=== PATIENT | male | born 1960 | race African-American/Black ===

== ENCOUNTER 2018-03-15 13:28 | Inpatient (IN) | payer OTHER ==
[2018-03-15 15:43] VITALS: BMI 25.4
--- NOTE | 2018-03-15 17:38 | HP ---
COWS - Scale Resting Pulse: 2= NC 101-120 Sweatin=Flushed/Facial Moisture Restless Observation: 1= Difficult to Sit Still Pupil Size: 0= Normal to Room Light Bone or Joint Aches: 2= Severe Diffuse Aches (Increased above normal discomfort) Runny Nose/ Eye Tearin= Nasal Congestion GI Upset > 30mins: 2= Nausea/Diarrhea (No diarrhea) Tremor Observation: 2= Slight Tremor Visible Yawning Observation: 0= None Anxiety or Irritability: 1=Feels Anxious/Irritable Goose Flesh Skin: 0=Smooth Skin COWS Score: 13 CIWA Score Nausea/Vomitin-Mild Nausea/No Vomiting Muscle Tremors: 4-Moderate,w/Arms Extend Anxiety: 1-Mildly Anxious Agitation: 1-Slight > Activity Paroxysmal Sweats: 3 (Facial Moisture) Orientation: 0-Oriented Tacttile Disturbances: 0-None Auditory Disturbances: 0-None Visual Disturbances: 0-None Headache: 3-Moderate CIWA-Ar Total Score: 13 - Admission Criteria OAS Guidelines: Admission for Medically Managed Detox: Requires at least one of the followin. CIWA greater than 12 2. Seizures within the past 24 hours 3. Delirium tremens within the past 24 hours 4. Hallucinations within the past 24 hours 5. Acute intervention needed for co occurring medical disorder 6. Acute intervention needed for co occurring psychiatric disorder 7. Severe withdrawal that cannot be handled at a lower level of care (continued vomiting, continued diarrhea, abnormal vital signs) requiring intravenous medication and/or fluids 8. Patient presents the following: CIWA greater than 12 Admission Criteria Met: Admission criteria met Admission ROS [facility] Chief Complaint: Here for opiate withdrawal. Allergies/Adverse Reactions: Allergies Allergy/AdvReac Type Severity Reaction Status Date / Time bryan Allergy Verified 03/15/18 16:27 cheese Allergy Verified 03/15/18 16:27 History of Present Illness: Here for opioid detox. Nicotine use began at age 15. Alcohol use began at age 14. Heroin use began at age 17. Crack/cocaine use began at age 22. Denies seizures or blackouts. Last overdose about 5 years ago. Longest length of sobriety 1 1/2 years. Discussed the benefits of community support meetings to support sobriety. Post epigastric hernia repair on 03/12/18 @ [facility] medicated patient w/ pain medication and methadone. Discharged on 03/14/18. . States was given methadone and pain medication while in-patient. Was given prescription for oxycodone and informed that medication would not be continued. States hx anemia and is constantly cold. Hx mental health problems being treated by [facility]. Last saw mental health provider in 2017. Denies thoughts of harming self or others. Search Terms: Keenan Zelaya, 1960 Search Date: 03/15/2018 05:39:06 PM The Drug Utilization Report below displays all of the controlled substance prescriptions, if any, that your patient has filled in the last twelve months. The information displayed on this report is compiled from pharmacy submissions to the Department, and accurately reflects the information as submitted by the pharmacies. This report was requested by: Sis Hui | Reference #: [id number] Others' Prescriptions Patient Name: Keenan Zelaya Date: 1960 Address: [address] [place] [address] Sex: Male Rx Written Rx Dispensed Drug Quantity Days Supply Prescriber Name 09/04/2017 09/07/2017 suboxone 8 mg-2 mg sl film 28 14 Kannan Diaz 08/04/2017 08/10/2017 suboxone 8 mg-2 mg sl film 20 10 Kannan Diaz Exam Limitations: No Limitations - Ebola screening Have you traveled outside of the country in the last 21 days: No (N) Have you had contact with anyone from an Ebola affected area: No Have you been sick,other than usual withdrawal symptoms: No Do you have a fever: No - Review of Systems Constitutional: Chills, Diaphoresis EENT: reports: Blurred Vision, Nose Congestion, Dental Problems (Missing some teeth. No problems chewing or swallowing.) Respiratory: reports: Other (COPD. Denies shortness of breath at this moment but had recent episodes.) Cardiac: reports: Other (Hx. Murmur) GI: reports: Constipated (Last BM 4-5 days ago.), Nausea, Other (S/P epigatric hernia repair on . C/o abd pain at incision site. Pain is a "8" and achy. Increases movement. coughing) : reports: Hematuria (States blood in urine x 2 days w/ a burning sensation.) Musculoskeletal: reports: Back Pain (Low back pain x 1.5 years. Usually achy, occassionaly sharp.), Joint Pain (Tenderness in all joints x 3 years. States pain has increased because in withdrawal.) Integumentary: reports: No Symptoms Reported Neuro: reports: Headache (Moderate w/o light sensitivity) Endocrine: reports: Increased Thirst (x 2 days), Increased Urine (x 7 months) Hematology: reports: No Symptoms Reported Psychiatric: reports: Judgement Intact, Orientated x3, Agitated, Anxious, Depressed (A little depression. Denies thoughts of harming self or others.), other Patient History - Patient Medical History Hx Asthma: No Hx Chronic Obstructive Pulmonary Disease (COPD): Yes Hx Cardiac Disorders: No Hx Hypertension: No Hx Seizures: No Hx Diabetes: No Hx Gastrointestinal Disorders: No Hx Genitourinary Disorders: No Hx Sexually Transmitted Disorders: No Hx Renal Disease (ESRD): No Hx Depression: No Hx Suicide Attempt: No Hx Schizophrenia: Yes - Patient Surgical History Past Surgical History: Yes Hx Neurologic Surgery: No Hx Cataract Extraction: No Hx Cardiac Surgery: No Hx Lung Surgery: No Hx Breast Surgery: No Hx Breast Biopsy: No Hx Abdominal Surgery: Yes (HERNIA REPAIR 03/12/18) Hx Appendectomy: No Hx Cholecystectomy: No Hx Genitourinary Surgery: No Hx Section: No Hx Orthopedic Surgery: No Anesthesia Reaction: No - PPD History Previous Implant?: Yes Documented Results: Negative w/o proof - Smoking Cessation Smoking history: Current every day smoker Have you smoked in the past 12 months: Yes Aproximately how many cigarettes per day: 10 Hx Chewing Tobacco Use: No Initiated information on smoking cessation: Yes 'Breaking Loose' booklet given: 03/15/18 - Substance & Tx. History Hx Alcohol Use: Yes Hx Substance Use: Yes Substance Use Type: Alcohol, Cocaine (Crack), Heroin Hx Substance Use Treatment: Yes (detoxes, rehabs) - Substances Abused Alcohol Route: Oral Frequency: Daily Amount used: liquor- 2 pints, beer- 1 six pack Age of first use: 14 Date of Last Use: 03/14/18 Heroin Route: Inhalation Frequency: Daily Amount used: 15 bags Age of first use: 17 Date of Last Use: 03/14/18 Crack Route: Smoking Frequency: Daily Amount used: $100 worth Age of first use: 22 Date of Last Use: 03/12/18 Admission Physical Exam BHS - Vital Signs Vital Signs: Vital Signs - 24 hr 03/15/18 15:40 Temperature 99.5 F Pulse Rate 105 H Respiratory 18 Rate Blood Pressure 137/76 - Physical General Appearance: Yes: Mild Distress, Tremorous, Irritable, Sweating, Anxious HEENTM: Yes: EOMI, Hearing grossly Normal, Normocephalic, Normal Voice, SISSY Respiratory: Yes: Lungs Clear, Normal Breath Sounds, No Respiratory Distress Neck: Yes: No masses,lesions,Nodules, Supple Breast: Yes: Breast Exam Deferred Cardiology: Yes: Regular Rhythm, S1, S2, Murmur, Tachycardia Abdominal: Yes: Soft, Guarding (Abd tenderness w/ guarding r/t recent surgical) , Other (Mid abd incison-line w/ dry dressing. Abd soft, (+) tenderness at incision line, BS(+); No rebound tenderness.) Genitourinary: Yes: Within Normal Limits Back: Yes: Normal Inspection Musculoskeletal: Yes: full range of Motion, Gait Steady, Joint Stiffness Extremities: Yes: Normal Capillary Refill, Normal Inspection, Normal Range of Motion Neurological: Yes: physician advisor II-XII NML intact, Fully Oriented, Motor Strength 5/5, Normal Mood/Affect Integumentary: Yes: Normal Color, Dry, Warm Lymphatic: Yes: Within Normal Limits - Diagnostic (1) Alcohol dependence with uncomplicated withdrawal Current Visit: Yes Status: Acute (2) Opioid dependence with withdrawal Current Visit: Yes Status: Acute (3) Nicotine dependence, uncomplicated Current Visit: Yes Status: Acute Qualifiers: Nicotine product type: cigarettes Qualified Code(s): F17.210 - Nicotine dependence, cigarettes, uncomplicated (4) History of abdominal surgery Current Visit: Yes Status: Acute Comment: Patient had an epigastric hernia repair on 03/12/18. (5) Cocaine dependence, uncomplicated Current Visit: Yes Status: Chronic Cleared for Admission [facility] - Detox or Rehab [facility] Level of Care: Medically Managed Detox Regimen/Protocol: Methadone/Librium [facility] Breath Alcohol Content Breath Alcohol Content: 0 Urine Drug Screen - Results Drug Screen Negative: No Urine Drug Screen Results: OPI-Opiates, MTD-Methadone, OXY-Oxycodone
[2018-03-15] MEDS ORDERED: MENTHOL/PHENOL 1 EACH UD MM PRN (18:55)
[2018-03-15] MEDS ORDERED: LOPERAMIDE HCL 2 MG CAPSULE PO PRN (18:55)
[2018-03-15] MEDS ORDERED: MAG HYDROX/AL HYDROX/SIMETH 30 ML UNIT-DOSE CUP PO PRN (18:55)
[2018-03-15] MEDS ORDERED: chlordiazePOXIDE HCL 25 MG CAPSULE PO PRN (18:55)
[2018-03-15] MEDS ORDERED: METHADONE HCL 10 MG TABLET (FOR DETOX USE ONLY) PO ONE ×2 (18:55→23:00)
[2018-03-15] MEDS ORDERED: chlordiazePOXIDE HCL 25 MG CAPSULE PO ONE (18:55)
[2018-03-15] MEDS ORDERED: IBUPROFEN 400 MG TABLET (FP) PO PRN (18:55)
[2018-03-15] MEDS ORDERED: MAGNESIUM HYDROX 2400MG/30ML ORAL SUSPENSION 30 ML CUP PO PRN (18:55)
[2018-03-15] MEDS ORDERED: MAGNESIUM CITRATE 300 ML BOTTLE PO PRN (18:55)
[2018-03-15] MEDS ORDERED: ACETAMINOPHEN 325 MG TABLET (FP) PO PRN (18:55)
[2018-03-15] MEDS ORDERED: MELATONIN 5 MG TABLETS PO PRN (22:00)
[2018-03-15] MEDS: DOCUSATE SODIUM 100 MG CAPSULE (FP) PO SCH (22:42)
[2018-03-15] MEDS: PANTOPRAZOLE 20 MG TABLET (FP) PO SCH (22:42)
[2018-03-15] MEDS: THIAMINE HCL 100 MG TABLET (FP) PO SCH (22:42)
[2018-03-15] MEDS: chlordiazePOXIDE HCL 25 MG CAPSULE PO SCH (22:42)
[2018-03-15 23:11] LABS: URINE APPEARANCE TURBID; URINE BILIRUBIN NEGATIVE (<2.0 mg/dL); URINE COLOR YELLOW; URINE GLUCOSE (UA) NEGATIVE (NEGATIVE); URINE KETONE TRACE (NEGATIVE); URINE LEUK ESTERASE NEGATIVE (NEGATIVE); URINE NITRITE NEGATIVE (NEGATIVE); URINE PROTEIN NEGATIVE (NEGATIVE); URINE UROBILINOGEN NEGATIVE mg/dL (0.2-1.0)
[2018-03-16] MEDS: chlordiazePOXIDE HCL 25 MG CAPSULE PO SCH ×4 (06:46→22:02)
[2018-03-16] MEDS: DOCUSATE SODIUM 100 MG CAPSULE (FP) PO SCH ×3 (06:46→22:02)
[2018-03-16] MEDS ORDERED: METHADONE HCL 10 MG TABLET (FOR DETOX USE ONLY) PO SCH (10:00)
[2018-03-16] MEDS: PRENATAL VITAMINS W/ FOLIC ACID TABLET (FP) PO SCH (10:17)
[2018-03-16] MEDS: PANTOPRAZOLE 20 MG TABLET (FP) PO SCH ×2 (10:17→22:02)
[2018-03-16] MEDS: NICOTINE 21 MG/24 HOURS TOPICAL PATCH TD SCH (10:18)
[2018-03-16 10:58] LABS: ALBUMIN 2.8 g/dl (3.4-5.0); ALK PHOS 62 U/L (45-117); ANION GAP 7 MMOL/L (8-16); BILIRUBIN,TOTAL 0.5 mg/dL (0.2-1); BLOOD UREA NITROGEN 9 mg/dL (7-18); CALCIUM 8.4 mg/dL (8.5-10.1); CHLORIDE 107 mmol/L (98-107); CO2 28 mmol/L (21-32); CREATININE 0.9 mg/dL (0.55-1.3); GLUCOSE,RANDOM 79 mg/dL (74-106); POTASSIUM 4.3 mmol/L (3.5-5.1); SGOT/AST 18 U/L (15-37); SGPT/ALT 18 U/L (13-61); SODIUM 141 mmol/L (136-145)
[2018-03-16 11:07] LABS: HEMATOCRIT 40.4 % (35.4-49); HEMOGLOBIN 12.8 GM/dL (11.7-16.9); MCH 29.4 pg (25.7-33.7); MCHC 31.7 g/dl (32.0-35.9); MEAN CELL VOLUME 92.8 fl (80-96); MEAN PLT VOLUME 9.2 fl (7.5-11.1); PLATELET COUNT 176 K/MM3 (134-434); RBC 4.35 M/mm3 (4.00-5.60); RDW 13.5 % (11.9-15.9); WHITE BLOOD COUNT 7.9 K/mm3 (4.0-10.0)
--- NOTE | 2018-03-16 14:04 | PN ---
S CIWA - CIWA Score Nausea/Vomitin Muscle Tremors: 4-Moderate,w/Arms Extend Anxiety: 4-Mod. Anxious/Guarded Agitation: 2 Paroxysmal Sweats: 3 Orientation: 0-Oriented Tacttile Disturbances: 1-Very Mild Itch/Numbness Auditory Disturbances: 0-None Visual Disturbances: 0-None Headache: 1-Very Mild CIWA-Ar Total Score: 17 BHS COWS - Scale Resting Pulse: 1= [place] 81-100 Sweatin= Chills/Flushing Restless Observation: 3= Extraneous Movement Pupil Size: 0= Normal to Room Light Bone or Joint Aches: 2= Severe Diffuse Aches Runny Nose/ Eye Tearin= Runny Nose/Eyes GI Upset > 30mins: 3= Vomiting/Diarrhea Tremor Observation of Outstretched Hands: 2= Slight Tremor Visible Yawning Observation: 0= None Anxiety or Irritability: 2=Irritable/Anxious Goose Flesh Skin: 0=Smooth Skin COWS Score: 16 BHS Progress Note (SOAP) Subjective: Stomach ache, interrupted sleep, anxious Objective: 03/16/18 14:03 Last Vital Signs Temp Pulse Resp BP Pulse Ox 98.9 F 92 H 18 113/80 03/16/18 09:15 03/16/18 09:15 03/16/18 09:15 03/16/18 09:15 Laboratory Tests 03/15/18 03/16/18 03/16/18 18:08 07:50 07:50 WBC 7.9 RBC 4.35 Hgb 12.8 Hct 40.4 MCV 92.8 MCH 29.4 MCHC 31.7 L RDW 13.5 Plt Count 176 MPV 9.2 Sodium Potassium Chloride Carbon Dioxide Anion Gap BUN Creatinine Creat Clearance w eGFR Random Glucose Calcium Total Bilirubin AST ALT Alkaline Phosphatase Total Protein Albumin Urine Color Yellow Urine Appearance Turbid Urine pH 5.0 Ur Specific [place] 1.027 Urine Protein Negative Urine Glucose (UA) Negative Urine Ketones Trace H Urine Blood Negative Urine Nitrite Negative Urine Bilirubin Negative Urine Urobilinogen Negative Ur Leukocyte Esterase Negative RPR Titer HIV 1&2 Antibody Screen Negative HIV P24 Antigen Negative 03/16/18 03/16/18 07:50 07:50 WBC RBC Hgb Hct MCV MCH MCHC RDW Plt Count MPV Sodium 141 Potassium 4.3 Chloride 107 Carbon Dioxide 28 Anion Gap 7 L BUN 9 Creatinine 0.9 Creat Clearance w eGFR > 60 Random Glucose 79 Calcium 8.4 L Total Bilirubin 0.5 AST 18 ALT 18 Alkaline Phosphatase 62 Total Protein 6.0 L Albumin 2.8 L Urine Color Urine Appearance Urine pH Ur Specific [place] Urine Protein Urine Glucose (UA) Urine Ketones Urine Blood Urine Nitrite Urine Bilirubin Urine Urobilinogen Ur Leukocyte Esterase RPR Titer Nonreactive HIV 1&2 Antibody Screen HIV P24 Antigen Labs reviewed Assessment: 03/16/18 14:03 Withdrawal symptoms Plan: Continue detox Encouraged PO water intake
[2018-03-16] MEDS: NICOTINE POLACRILEX 2 MG GUM BUC PRN ×2 (15:17→22:19)
--- NOTE | 2018-03-16 16:58 | EKG ---
Test Reason : Blood Pressure : / mmHG Vent. Rate : 100 BPM Atrial Rate : 100 BPM P-R Int : 126 ms QRS Dur : 070 ms QT Int : 322 ms P-R-T Axes : 079 -39 002 degrees QTc Int : 415 ms NORMAL SINUS RHYTHM LEFT AXIS DEVIATION NONSPECIFIC ST AND T WAVE ABNORMALITY ABNORMAL ECG NO PREVIOUS ECGS AVAILABLE Confirmed by MD Mahesh, Severiano ([id number]) on 03/16/2018 4:58:32 PM Referred By: Confirmed By:Severiano Aragon MD
[2018-03-16] MEDS: THIAMINE HCL 100 MG TABLET (FP) PO SCH (22:02)
[2018-03-17] MEDS: chlordiazePOXIDE HCL 25 MG CAPSULE PO SCH ×3 (05:59→17:11)
[2018-03-17] MEDS: DOCUSATE SODIUM 100 MG CAPSULE (FP) PO SCH ×3 (05:59→22:10)
[2018-03-17] MEDS: NICOTINE POLACRILEX 2 MG GUM BUC PRN (06:37)
[2018-03-17] MEDS: METHADONE HCL 5 MG TABLET (FOR DETOX USE ONLY) PO SCH (10:48)
[2018-03-17] MEDS: PRENATAL VITAMINS W/ FOLIC ACID TABLET (FP) PO SCH (10:49)
[2018-03-17] MEDS: PANTOPRAZOLE 20 MG TABLET (FP) PO SCH ×2 (10:49→22:10)
[2018-03-17] MEDS: NICOTINE 21 MG/24 HOURS TOPICAL PATCH TD SCH (10:49)
--- NOTE | 2018-03-17 13:31 | PN ---
S CIWA - CIWA Score Nausea/Vomitin-No Nausea/No Vomiting Muscle Tremors: 3 Anxiety: 4-Mod. Anxious/Guarded Agitation: 3 Paroxysmal Sweats: 3 Orientation: 0-Oriented Tacttile Disturbances: 1-Very Mild Itch/Numbness Auditory Disturbances: 0-None Visual Disturbances: 0-None Headache: 2-Mild CIWA-Ar Total Score: 16 BHS COWS - Scale Resting Pulse: 1= [place] 81-100 Sweatin= Chills/Flushing Restless Observation: 1= Difficult to Sit Still Pupil Size: 0= Normal to Room Light Bone or Joint Aches: 2= Severe Diffuse Aches Runny Nose/ Eye Tearin= None GI Upset > 30mins: 1= Stomach Cramp Tremor Observation of Outstretched Hands: 2= Slight Tremor Visible Yawning Observation: 1= 1-2x During Session Anxiety or Irritability: 2=Irritable/Anxious Goose Flesh Skin: 0=Smooth Skin COWS Score: 11 BHS Progress Note (SOAP) Subjective: Constipation, Sweating, Body Aches, H/A, Tremors. Objective: PATIENT A & O X 3, OBSERVED AMBULATING ON UNIT. NO ACUTE DISTRESS. 03/17/18 13:26 Vital Signs Temperature 98.6 F 03/17/18 13:25 Pulse Rate 81 03/17/18 13:25 Respiratory Rate 18 03/17/18 13:25 Blood Pressure 112/80 03/17/18 13:25 O2 Sat by Pulse Oximetry (%) Laboratory Tests 03/15/18 03/16/18 03/16/18 18:08 07:50 07:50 WBC 7.9 RBC 4.35 Hgb 12.8 Hct 40.4 MCV 92.8 MCH 29.4 MCHC 31.7 L RDW 13.5 Plt Count 176 MPV 9.2 Sodium Potassium Chloride Carbon Dioxide Anion Gap BUN Creatinine Creat Clearance w eGFR Random Glucose Calcium Total Bilirubin AST ALT Alkaline Phosphatase Total Protein Albumin Urine Color Yellow Urine Appearance Turbid Urine pH 5.0 Ur Specific [place] 1.027 Urine Protein Negative Urine Glucose (UA) Negative Urine Ketones Trace H Urine Blood Negative Urine Nitrite Negative Urine Bilirubin Negative Urine Urobilinogen Negative Ur Leukocyte Esterase Negative RPR Titer HIV 1&2 Antibody Screen Negative HIV P24 Antigen Negative 03/16/18 03/16/18 07:50 07:50 WBC RBC Hgb Hct MCV MCH MCHC RDW Plt Count MPV Sodium 141 Potassium 4.3 Chloride 107 Carbon Dioxide 28 Anion Gap 7 L BUN 9 Creatinine 0.9 Creat Clearance w eGFR > 60 Random Glucose 79 Calcium 8.4 L Total Bilirubin 0.5 AST 18 ALT 18 Alkaline Phosphatase 62 Total Protein 6.0 L Albumin 2.8 L Urine Color Urine Appearance Urine pH Ur Specific [place] Urine Protein Urine Glucose (UA) Urine Ketones Urine Blood Urine Nitrite Urine Bilirubin Urine Urobilinogen Ur Leukocyte Esterase RPR Titer Nonreactive HIV 1&2 Antibody Screen HIV P24 Antigen LABS NOTED. WOUND ON ABDOMEN (HISTORY OF RECENT SURGICAL ABDOMINAL HERNIA REPAIR) APPEARS CLEAN AND DRY. NO UNUSUAL DISCHARGE, ERYTHEMA, OR SIGNS OF INFECTION NOTED AT WOUND SITE. 03/17/18 13:29 Assessment: 03/17/18 13:31 WITHDRAWAL SYMPTOMS. Plan: CONTINUE DETOX. DRESSING ON ABDOMEN (TEGADERM COVERING GAUZE) CHANGED X 1. PATIENT REPORTS THAT DRESSING HAS NOT BEEN CHANGED SINCE TIME OF SURGERY ON 03/13/2018. PATIENT DOES NOT RECALL FOLLOW-UP WOUND CARE INSTRUCTIONS FOR ABDOMINAL WOUND. NO RELEVANT INFORMATION IS NOTED IN DISCHARGE INSTRUCTIONS THAT PATIENT BROUGHT WITH HIM FROM [facility] AT TIME OF ADMISSION. ATTEMPT MADE TO CONTACT [facility] TO INQUIRE ABOUT WOUND CARE INSTRUCTIONS. CURRENTLY AWAITING RETURN TELEPHONE CALL. TEGADERM AND GAUZE CHANGED X 1 IN THE MEANTIME.
[2018-03-17] MEDS: chlordiazePOXIDE 5 MG CAPSULE PO SCH (22:10)
[2018-03-17] MEDS: THIAMINE HCL 100 MG TABLET (FP) PO SCH (22:10)
[2018-03-18] MEDS: chlordiazePOXIDE 5 MG CAPSULE PO SCH ×3 (06:02→17:09)
[2018-03-18] MEDS: DOCUSATE SODIUM 100 MG CAPSULE (FP) PO SCH ×3 (06:02→22:06)
[2018-03-18] MEDS: METHADONE HCL 5 MG TABLET (FOR DETOX USE ONLY) PO SCH (10:30)
[2018-03-18] MEDS: PANTOPRAZOLE 20 MG TABLET (FP) PO SCH ×2 (10:31→22:06)
[2018-03-18] MEDS: PRENATAL VITAMINS W/ FOLIC ACID TABLET (FP) PO SCH (10:31)
[2018-03-18] MEDS: NICOTINE 21 MG/24 HOURS TOPICAL PATCH TD SCH (10:34)
[2018-03-18] MEDS: LIDOCAINE 5% TOPICAL PATCH TP SCH (10:34)
--- NOTE | 2018-03-18 11:28 | PN ---
BHS Progress Note (SOAP) Subjective: body aches tremor sweat muscle cramping surgical site dressing intact no drainage noted denies pain had regular bowel movement today ambulate on [address] social with peers Objective: 03/18/18 11:26 Vital Signs Temperature 98.0 F 03/18/18 09:13 Pulse Rate 88 03/18/18 09:13 Respiratory Rate 18 03/18/18 09:13 Blood Pressure 111/81 03/18/18 09:13 O2 Sat by Pulse Oximetry (%) Laboratory Last Values WBC 7.9 K/mm3 (4.0-10.0) 03/16/18 07:50 RBC 4.35 M/mm3 (4.00-5.60) 03/16/18 07:50 Hgb 12.8 GM/dL (11.7-16.9) 03/16/18 07:50 Hct 40.4 % (35.4-49) 03/16/18 07:50 MCV 92.8 fl (80-96) 03/16/18 07:50 MCH 29.4 pg (25.7-33.7) 03/16/18 07:50 MCHC 31.7 g/dl (32.0-35.9) L 03/16/18 07:50 RDW 13.5 % (11.9-15.9) 03/16/18 07:50 Plt Count 176 K/MM3 (134-434) 03/16/18 07:50 MPV 9.2 fl (7.5-11.1) 03/16/18 07:50 Sodium 141 mmol/L (136-145) 03/16/18 07:50 Potassium 4.3 mmol/L (3.5-5.1) 03/16/18 07:50 Chloride 107 mmol/L (98-107) 03/16/18 07:50 Carbon Dioxide 28 mmol/L (21-32) 03/16/18 07:50 Anion Gap 7 MMOL/L (8-16) L 03/16/18 07:50 BUN 9 mg/dL (7-18) 03/16/18 07:50 Creatinine 0.9 mg/dL (0.55-1.3) 03/16/18 07:50 Creat Clearance w eGFR > 60 (>60) 03/16/18 07:50 Random Glucose 79 mg/dL (74-106) 03/16/18 07:50 Calcium 8.4 mg/dL (8.5-10.1) L 03/16/18 07:50 Total Bilirubin 0.5 mg/dL (0.2-1) 03/16/18 07:50 AST 18 U/L (15-37) 03/16/18 07:50 ALT 18 U/L (13-61) 03/16/18 07:50 Alkaline Phosphatase 62 U/L (45-117) 03/16/18 07:50 Total Protein 6.0 g/dl (6.4-8.2) L 03/16/18 07:50 Albumin 2.8 g/dl (3.4-5.0) L 03/16/18 07:50 Urine Color Yellow 03/15/18 18:08 Urine Appearance Turbid 03/15/18 18:08 Urine pH 5.0 (5.0-8.0) 03/15/18 18:08 Ur Specific [place] 1.027 (1.010-1.035) 03/15/18 18:08 Urine Protein Negative (NEGATIVE) 03/15/18 18:08 Urine Glucose (UA) Negative (NEGATIVE) 03/15/18 18:08 Urine Ketones Trace (NEGATIVE) H 03/15/18 18:08 Urine Blood Negative (NEGATIVE) 03/15/18 18:08 Urine Nitrite Negative (NEGATIVE) 03/15/18 18:08 Urine Bilirubin Negative (<2.0 mg/dL) 03/15/18 18:08 Urine Urobilinogen Negative mg/dL (0.2-1.0) 03/15/18 18:08 Ur Leukocyte Esterase Negative (NEGATIVE) 03/15/18 18:08 RPR Titer Nonreactive (NONREACTIVE) 03/16/18 07:50 HIV 1&2 Antibody Screen Negative 03/16/18 07:50 HIV P24 Antigen Negative 03/16/18 07:50 lab noted Assessment: 03/18/18 11:27 withdrawal sx umbilical hernia x 7 years surgically repaired "early this week" Plan: continue detox
[2018-03-18] MEDS ORDERED: LIDOCAINE PATCH REMOVAL MC SCH (22:00)
[2018-03-18] MEDS: THIAMINE HCL 100 MG TABLET (FP) PO SCH (22:06)
[2018-03-18] MEDS: chlordiazePOXIDE HCL 10 MG CAPSULE PO SCH (22:06)
[2018-03-19] MEDS: DOCUSATE SODIUM 100 MG CAPSULE (FP) PO SCH (05:32)
[2018-03-19] MEDS: chlordiazePOXIDE HCL 10 MG CAPSULE PO SCH ×2 (05:32→10:09)
[2018-03-19 06:18] VITALS: BP 115/76
[2018-03-19] MEDS: PRENATAL VITAMINS W/ FOLIC ACID TABLET (FP) PO SCH (09:33)
[2018-03-19] MEDS: NICOTINE 21 MG/24 HOURS TOPICAL PATCH TD SCH (09:33)
[2018-03-19] MEDS: LIDOCAINE 5% TOPICAL PATCH TP SCH (09:33)
[2018-03-19] MEDS: PANTOPRAZOLE 20 MG TABLET (FP) PO SCH (09:33)
[2018-03-19] MEDS: NICOTINE POLACRILEX 2 MG GUM BUC PRN (09:34)
[2018-03-19 09:43] VITALS: PULSE 76; TEMP 97.6
[2018-03-19] MEDS ORDERED: METHADONE HCL 10 MG TABLET (FOR DETOX USE ONLY) PO SCH (10:00)
--- NOTE | 2018-03-19 11:34 | DS ---
[facility] Detox Discharge Summary Admission Date: 03/15/18 Discharge Date: 03/19/18 - History Present History: Alcohol Dependence, Cocaine Dependence, Opioid Dependence - Physical Exam Results Vital Signs: Vital Signs Temperature 97.6 F 03/19/18 09:41 Pulse Rate 76 03/19/18 09:41 Respiratory Rate 20 03/19/18 09:41 Blood Pressure 115/76 03/19/18 09:41 O2 Sat by Pulse Oximetry (%) Pertinent Admission Physical Exam Findings: PATIENT COMPLETED DETOX REGIMEN WITHOUT ADVERSE EVENT. REMAINS CLINICALLY STABLE AND DENIES SI/HI. AMB AD LEONID AND ABLE TO MAKE NEEDS KNOWN. S/P HERNIA REPAIR. DENIES PAIN, DISCHARGE TO ABDOMINAL SURGICAL SITE. PATIENT ACCEPTED D/C REFERRAL TO [facility] AND ENCOURAGED TO COMPLETE REHAB TO PREVENT RELAPSE. PATIENT GIVEN D/C INSTRUCTIONS BY STAFF. - Treatment Hospital Course: Detox Protocol Followed, Detoxed Safely, Responded well, Discharged Condition Good, Rehab Referral Accepted Patient has Accepted a Rehab Referral to: [facility] - Medication Discharge Medications: Ambulatory Orders Divalproex [Depakote -] 250 mg PO DAILY 03/15/18 Docusate Sodium [Colace] 1 cap PO TID 03/15/18 Risperidone 1 mg PO BID 03/15/18 - AMA Did Patient Leave Against Medical Advice: No
[2018-03-20] MEDS ORDERED: METHADONE HCL 5 MG TABLET (FOR DETOX USE ONLY) PO SCH (06:00)
== END 2018-03-19 12:38 | disposition other institution (70) | DRG 773 ==
LOC: YASAS 13:28 → Y3N 18:34
PROC: HZ2ZZZZ Detoxification Services for Substance Abuse Treatment (ICD-10-PCS; principal; 2018-03-15)
DX: F11.23 Opioid dependence with withdrawal (principal); F10.230 Alcohol dependence with withdrawal, uncomplicated; F14.20 Cocaine dependence, uncomplicated; F17.210 Nicotine dependence, cigarettes, uncomplicated; J44.9 Chronic obstructive pulmonary disease, unspecified; K21.9 Gastro-esophageal reflux disease without esophagitis; R00.0 Tachycardia, unspecified
CPT/HCPCS: 36415; 80053; 81003; 85027; 86593; 87389; 93005; 93010

== ENCOUNTER 2018-03-19 12:57 | Inpatient (IN) | payer OTHER ==
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
--- NOTE | 2018-03-19 16:48 | HP ---
[facility] Rehab Assess/Revision - Admission History Admitted to Rehab from: [facility] Date of Admission to Rehab: 03/19/2018 - Findings Detox History & Physical reviewed: Yes Concur with findings: Yes Inpatient Rehab Admission - Initial Determination Are CD services needed?: Yes Free of communicable disease: Yes Not in need of hospitalization: Yes - Rehab Admission Criteria Previous failed treatment: Yes Poor recovery environment: Yes Comorbidities: Yes Lacks judgement: No Patient is meeting Inpatient Rehab admission criteria:: Yes
[2018-03-19] MEDS ORDERED: MAG HYDROX/AL HYDROX/SIMETH 30 ML UNIT-DOSE CUP PO PRN (16:51)
[2018-03-19] MEDS ORDERED: MAGNESIUM HYDROX 2400MG/30ML ORAL SUSPENSION 30 ML CUP PO PRN (16:51)
[2018-03-19] MEDS ORDERED: MAGNESIUM CITRATE 300 ML BOTTLE PO PRN (16:51)
[2018-03-19] MEDS ORDERED: LOPERAMIDE HCL 2 MG CAPSULE PO PRN (16:51)
[2018-03-19] MEDS: IBUPROFEN 400 MG TABLET (FP) PO PRN (17:33)
[2018-03-19] MEDS: DOCUSATE SODIUM 100 MG CAPSULE (FP) PO SCH (21:40)
[2018-03-19] MEDS: THIAMINE HCL 100 MG TABLET (FP) PO SCH (21:40)
[2018-03-19] MEDS: risperiDONE 1 MG TABLET (FP) PO SCH (21:40)
[2018-03-19] MEDS: DIVALPROEX SODIUM 250 MG TABLET E.C. PO SCH (21:40)
--- NOTE | 2018-03-19 21:47 | PN ---
BHS Progress Note Note: Alert and oriented. Lungs CTA. Abd incision line dry and approximated. Small streak dry reddish discharge noted on dressing. Abd soft, tender to palpation, w/o rebound. B/P: 120/78; HR: 79; T: 97.9 Plan: Increase water intake - 2 pitchers daily. Suture removal for 03/21. D/c dressing on 03/20, if no continued wound drainage. Continue wearing abdominal support belt.
[2018-03-19] MEDS ORDERED: SUVOREXANT 10 MG TABLET PO PRN (22:00)
[2018-03-20] MEDS: DOCUSATE SODIUM 100 MG CAPSULE (FP) PO SCH ×4 (06:22→21:15)
[2018-03-20] MEDS: ACETAMINOPHEN 325 MG TABLET (FP) PO PRN ×2 (08:08→21:16)
[2018-03-20] MEDS: NICOTINE POLACRILEX 2 MG GUM BUC PRN ×3 (08:32→17:46)
[2018-03-20] MEDS: NICOTINE 14 MG/24 HOURS TOPICAL PATCH TD SCH (09:47)
[2018-03-20] MEDS: risperiDONE 1 MG TABLET (FP) PO SCH ×2 (09:48→21:15)
[2018-03-20] MEDS: PANTOPRAZOLE 20 MG TABLET (FP) PO SCH (09:48)
[2018-03-20] MEDS: PRENATAL VITAMINS W/ FOLIC ACID TABLET (FP) PO SCH (09:49)
[2018-03-20] MEDS: hydrOXYzine PAMOATE 50 MG CAPSULE (FP) PO PRN ×2 (09:50→21:32)
[2018-03-20] MEDS: THIAMINE HCL 100 MG TABLET (FP) PO SCH (21:15)
[2018-03-20] MEDS: DIVALPROEX SODIUM 250 MG TABLET E.C. PO SCH (21:15)
[2018-03-20] MEDS: IBUPROFEN 400 MG TABLET (FP) PO PRN (21:31)
[2018-03-21] MEDS: ACETAMINOPHEN 325 MG TABLET (FP) PO PRN ×2 (06:22→19:33)
[2018-03-21] MEDS: DOCUSATE SODIUM 100 MG CAPSULE (FP) PO SCH ×3 (06:22→21:15)
[2018-03-21] MEDS: IBUPROFEN 400 MG TABLET (FP) PO PRN ×2 (08:38→17:38)
[2018-03-21] MEDS: NICOTINE POLACRILEX 2 MG GUM BUC PRN ×4 (08:39→22:29)
[2018-03-21] MEDS: guaiFENesin/D-METHORPHAN HB 10 ML UNIT-DOSE CUPS PO PRN ×2 (08:39→21:17)
[2018-03-21] MEDS: PRENATAL VITAMINS W/ FOLIC ACID TABLET (FP) PO SCH (11:17)
[2018-03-21] MEDS: PANTOPRAZOLE 20 MG TABLET (FP) PO SCH (11:17)
[2018-03-21] MEDS: NICOTINE 14 MG/24 HOURS TOPICAL PATCH TD SCH (11:17)
[2018-03-21] MEDS: risperiDONE 1 MG TABLET (FP) PO SCH ×2 (11:17→21:15)
[2018-03-21] MEDS ORDERED: FLU VACCINE QUAD 60 MCG/0.5 ML (MDV 18-19) IM ONE (12:00)
[2018-03-21] MEDS ORDERED: PNEUMOC 13-VAL CONJ-DIP CRM/PF 0.5 ML DISP.SYRIN IM ONE (18:00)
[2018-03-21] MEDS: DIVALPROEX SODIUM 250 MG TABLET E.C. PO SCH (21:15)
[2018-03-21] MEDS: THIAMINE HCL 100 MG TABLET (FP) PO SCH (21:15)
[2018-03-21] MEDS: hydrOXYzine PAMOATE 50 MG CAPSULE (FP) PO PRN (21:17)
[2018-03-22] MEDS: DOCUSATE SODIUM 100 MG CAPSULE (FP) PO SCH ×3 (06:15→21:19)
[2018-03-22] MEDS: NICOTINE POLACRILEX 2 MG GUM BUC PRN ×4 (06:48→20:14)
--- NOTE | 2018-03-22 09:05 | PN ---
S Progress Note Note: PATIENT SEEN FOR C/O B/L LEG SWELLING AND INDIGESTION. PATIENT DENIES PAIN, REDNESS AND SWELLING TO BILATERAL CALF AREAS. PATIENT IS ALERT AND ORIENTED X 3.AMB AD LEONID WITHIN UNIT. IN NAD. DENIES CP, SOB AND DIZZINESS. Vital Signs Temperature 98.4 F 03/22/18 06:16 Pulse Rate 82 03/22/18 06:16 Respiratory Rate 18 03/22/18 06:16 Blood Pressure 149/90 03/22/18 06:16 O2 Sat by Pulse Oximetry (%) PE: ALERT AND ORIENTED X 3 SKIN WARM AND DRY, MID ABDOMINAL S/L WITH SUTURES INTACT, NO REDNESS OR DRAINAGE NOTED. CAR S1S2 RESP CTA BL EXT +1 PEDAL AND ANKLE EDEMA BILATERALLY. NO REDNESS OR SWELLING OF CALVES NOTED A/P INDIGESTION/GERD BLE SWELLING WILL INCREASE PROTONIX TO 40MG DAILY TEDS B/L CONTINUE TO MONITOR CLINICALLY
[2018-03-22] MEDS: NICOTINE 14 MG/24 HOURS TOPICAL PATCH TD SCH (09:47)
[2018-03-22] MEDS: PRENATAL VITAMINS W/ FOLIC ACID TABLET (FP) PO SCH (09:47)
[2018-03-22] MEDS: risperiDONE 1 MG TABLET (FP) PO SCH ×2 (09:47→21:19)
[2018-03-22] MEDS: PANTOPRAZOLE 40 MG TABLET (FP) PO SCH (09:48)
[2018-03-22] MEDS: IBUPROFEN 400 MG TABLET (FP) PO PRN ×2 (11:05→20:15)
[2018-03-22] MEDS: guaiFENesin/D-METHORPHAN HB 10 ML UNIT-DOSE CUPS PO PRN ×2 (11:07→16:44)
--- NOTE | 2018-03-22 20:23 | PN ---
[facility] Progress Note Note: Abdominal suture line non-approximated at 1 cm below upper incision line and 15 mm above lower incision line w/ smalll amt sanguinous drainage noted on dressing. Skin is growing over sutures. Sutures removed. Small strips at upper and lower incision line to approximate wound. Bacitracin dressing to wound. Plan: Bacitracin to suture line and dry dressing BID. Notify Provider of any change in drainage or increase in would opening. Continue abdominal support belt while out of bed.
[2018-03-22] MEDS: hydrOXYzine PAMOATE 50 MG CAPSULE (FP) PO PRN (21:19)
[2018-03-22] MEDS: THIAMINE HCL 100 MG TABLET (FP) PO SCH (21:19)
[2018-03-22] MEDS: DIVALPROEX SODIUM 250 MG TABLET E.C. PO SCH (21:19)
[2018-03-22] MEDS ORDERED: SUVOREXANT 10 MG TABLET PO PRN (22:00)
[2018-03-23] MEDS: DOCUSATE SODIUM 100 MG CAPSULE (FP) PO SCH ×3 (06:27→21:23)
[2018-03-23] MEDS: NICOTINE POLACRILEX 2 MG GUM BUC PRN ×3 (06:44→16:57)
[2018-03-23] MEDS: NICOTINE 14 MG/24 HOURS TOPICAL PATCH TD SCH (09:58)
[2018-03-23] MEDS: risperiDONE 1 MG TABLET (FP) PO SCH ×2 (09:58→21:23)
[2018-03-23] MEDS: PANTOPRAZOLE 40 MG TABLET (FP) PO SCH (09:58)
[2018-03-23] MEDS: IBUPROFEN 400 MG TABLET (FP) PO PRN ×2 (09:58→18:14)
[2018-03-23] MEDS: PRENATAL VITAMINS W/ FOLIC ACID TABLET (FP) PO SCH (09:58)
--- NOTE | 2018-03-23 09:59 | PN ---
[facility] Progress Note Note: Pt states would like to have his leg swelling evaluated at the ER. Has had both legs swollen for several weeks- no recent change. Also recent hernia repair- 03/12 and sutures were removed yesterday snow- since then with serosanguinous discharge that is soaking through dressing changes. PE: abd- mid abd with healed incision site, at bottom of suture site with minimal dehiscence- drainage from this site charlene feet- good pulses, 1+ edema of legs- no tenderness, redness and minimal pain a/p: Edema of legs- not c/w DVT, pts albumin 2.5- and pt walking a lot in unit- Dehiscence of wound- mild, d/w ER- Dr. Taylor- who indicated that we need to just steri-strip the affected area and for pt to f/u surgeon at [facility]- but pt insists on having this evaluated in ER- send to ER via ambulette. d/w nursing staff and ER
[2018-03-23] MEDS ORDERED: BACITRACIN 0.9 GM PACKET ONE (10:42)
--- NOTE | 2018-03-23 16:16 | PN ---
S Progress Note Note: Pt returned from ER- very contented. Says they did US of both legs- negative for DVT and had steristrip placed on bottom of suture site, dressing placed- with continuous drainage. d/w pt to have thicker dressing placed and change as often as needed. No evidence of infection.
[2018-03-23] MEDS: guaiFENesin/D-METHORPHAN HB 10 ML UNIT-DOSE CUPS PO PRN (16:57)
[2018-03-23] MEDS: DIVALPROEX SODIUM 250 MG TABLET E.C. PO SCH (21:23)
[2018-03-23] MEDS: THIAMINE HCL 100 MG TABLET (FP) PO SCH (21:23)
[2018-03-24] MEDS: DOCUSATE SODIUM 100 MG CAPSULE (FP) PO SCH ×3 (06:17→21:16)
[2018-03-24] MEDS: NICOTINE 14 MG/24 HOURS TOPICAL PATCH TD SCH (09:32)
[2018-03-24] MEDS: IBUPROFEN 400 MG TABLET (FP) PO PRN ×2 (09:32→19:10)
[2018-03-24] MEDS: NICOTINE POLACRILEX 2 MG GUM BUC PRN ×3 (09:32→19:12)
[2018-03-24] MEDS: PANTOPRAZOLE 40 MG TABLET (FP) PO SCH (09:32)
[2018-03-24] MEDS: risperiDONE 1 MG TABLET (FP) PO SCH ×2 (09:32→21:16)
[2018-03-24] MEDS: PRENATAL VITAMINS W/ FOLIC ACID TABLET (FP) PO SCH (09:32)
[2018-03-24] MEDS: ACETAMINOPHEN 325 MG TABLET (FP) PO PRN (13:46)
[2018-03-24] MEDS: guaiFENesin/D-METHORPHAN HB 10 ML UNIT-DOSE CUPS PO PRN (15:29)
[2018-03-24] MEDS: BACITRACIN 0.9 GM PACKET TP SCH (15:29)
[2018-03-24] MEDS: hydrOXYzine PAMOATE 50 MG CAPSULE (FP) PO PRN (21:16)
[2018-03-24] MEDS: DIVALPROEX SODIUM 250 MG TABLET E.C. PO SCH (21:16)
[2018-03-24] MEDS: THIAMINE HCL 100 MG TABLET (FP) PO SCH (21:16)
[2018-03-25] MEDS: DOCUSATE SODIUM 100 MG CAPSULE (FP) PO SCH ×3 (06:19→21:13)
[2018-03-25] MEDS: guaiFENesin/D-METHORPHAN HB 10 ML UNIT-DOSE CUPS PO PRN ×3 (06:31→21:15)
[2018-03-25] MEDS: ACETAMINOPHEN 325 MG TABLET (FP) PO PRN ×2 (06:31→11:48)
[2018-03-25] MEDS: NICOTINE 14 MG/24 HOURS TOPICAL PATCH TD SCH (09:49)
[2018-03-25] MEDS: BACITRACIN 0.9 GM PACKET TP SCH (09:49)
[2018-03-25] MEDS: PRENATAL VITAMINS W/ FOLIC ACID TABLET (FP) PO SCH (09:49)
[2018-03-25] MEDS: PANTOPRAZOLE 40 MG TABLET (FP) PO SCH (09:49)
[2018-03-25] MEDS: risperiDONE 1 MG TABLET (FP) PO SCH ×2 (09:49→21:13)
[2018-03-25] MEDS: DIVALPROEX SODIUM 250 MG TABLET E.C. PO SCH (21:13)
[2018-03-25] MEDS: MELATONIN 5 MG TABLETS PO PRN (21:13)
[2018-03-25] MEDS: IBUPROFEN 400 MG TABLET (FP) PO PRN (21:15)
[2018-03-25] MEDS ORDERED: SUVOREXANT 10 MG TABLET PO PRN (22:00)
[2018-03-25] MEDS: THIAMINE HCL 100 MG TABLET (FP) PO SCH (22:00)
[2018-03-26] MEDS: IBUPROFEN 400 MG TABLET (FP) PO PRN ×2 (06:01→13:51)
[2018-03-26] MEDS: DOCUSATE SODIUM 100 MG CAPSULE (FP) PO SCH ×3 (06:01→21:04)
[2018-03-26] MEDS: NICOTINE POLACRILEX 2 MG GUM BUC PRN ×4 (06:02→19:42)
[2018-03-26] MEDS: NICOTINE 14 MG/24 HOURS TOPICAL PATCH TD SCH (09:22)
[2018-03-26] MEDS: risperiDONE 1 MG TABLET (FP) PO SCH ×2 (09:22→21:04)
[2018-03-26] MEDS: PRENATAL VITAMINS W/ FOLIC ACID TABLET (FP) PO SCH (09:22)
[2018-03-26] MEDS: PANTOPRAZOLE 40 MG TABLET (FP) PO SCH (09:22)
[2018-03-26] MEDS: hydrOXYzine PAMOATE 50 MG CAPSULE (FP) PO PRN ×2 (09:22→21:04)
[2018-03-26] MEDS: BACITRACIN 0.9 GM PACKET TP SCH (09:22)
[2018-03-26] MEDS: THIAMINE HCL 100 MG TABLET (FP) PO SCH (21:04)
[2018-03-26] MEDS: MELATONIN 5 MG TABLETS PO PRN (21:04)
[2018-03-26] MEDS: DIVALPROEX SODIUM 250 MG TABLET E.C. PO SCH (21:04)
[2018-03-27] MEDS: DOCUSATE SODIUM 100 MG CAPSULE (FP) PO SCH ×3 (06:18→21:29)
[2018-03-27] MEDS: IBUPROFEN 400 MG TABLET (FP) PO PRN (06:19)
[2018-03-27] MEDS: guaiFENesin/D-METHORPHAN HB 10 ML UNIT-DOSE CUPS PO PRN (06:20)
[2018-03-27] MEDS: NICOTINE POLACRILEX 2 MG GUM BUC PRN ×3 (06:21→21:30)
[2018-03-27] MEDS: PRENATAL VITAMINS W/ FOLIC ACID TABLET (FP) PO SCH (09:38)
[2018-03-27] MEDS: BACITRACIN 0.9 GM PACKET TP SCH (09:38)
[2018-03-27] MEDS: risperiDONE 1 MG TABLET (FP) PO SCH ×2 (09:38→21:28)
[2018-03-27] MEDS: PANTOPRAZOLE 40 MG TABLET (FP) PO SCH (09:38)
[2018-03-27] MEDS: NICOTINE 14 MG/24 HOURS TOPICAL PATCH TD SCH (10:20)
[2018-03-27] MEDS: hydrOXYzine PAMOATE 50 MG CAPSULE (FP) PO PRN (21:28)
[2018-03-27] MEDS: THIAMINE HCL 100 MG TABLET (FP) PO SCH (21:28)
[2018-03-27] MEDS: MELATONIN 5 MG TABLETS PO PRN (21:29)
[2018-03-27] MEDS: DIVALPROEX SODIUM 250 MG TABLET E.C. PO SCH (21:29)
[2018-03-28] MEDS: DOCUSATE SODIUM 100 MG CAPSULE (FP) PO SCH ×3 (06:05→21:16)
[2018-03-28] MEDS: NICOTINE POLACRILEX 2 MG GUM BUC PRN ×3 (06:05→13:58)
[2018-03-28] MEDS: guaiFENesin/D-METHORPHAN HB 10 ML UNIT-DOSE CUPS PO PRN (06:06)
[2018-03-28] MEDS: IBUPROFEN 400 MG TABLET (FP) PO PRN (06:33)
[2018-03-28] MEDS: PRENATAL VITAMINS W/ FOLIC ACID TABLET (FP) PO SCH (09:31)
[2018-03-28] MEDS: risperiDONE 1 MG TABLET (FP) PO SCH ×2 (09:31→21:16)
[2018-03-28] MEDS: NICOTINE 14 MG/24 HOURS TOPICAL PATCH TD SCH (09:31)
[2018-03-28] MEDS: PANTOPRAZOLE 40 MG TABLET (FP) PO SCH (09:31)
[2018-03-28] MEDS: BACITRACIN 0.9 GM PACKET TP SCH (10:56)
[2018-03-28] MEDS: ACETAMINOPHEN 325 MG TABLET (FP) PO PRN (13:57)
[2018-03-28] MEDS: THIAMINE HCL 100 MG TABLET (FP) PO SCH (21:16)
[2018-03-28] MEDS: MELATONIN 5 MG TABLETS PO PRN (21:16)
[2018-03-28] MEDS: hydrOXYzine PAMOATE 50 MG CAPSULE (FP) PO PRN (21:16)
[2018-03-28] MEDS: DIVALPROEX SODIUM 250 MG TABLET E.C. PO SCH (21:17)
[2018-03-28] MEDS ORDERED: SUVOREXANT 10 MG TABLET PO PRN (22:00)
[2018-03-29] MEDS: DOCUSATE SODIUM 100 MG CAPSULE (FP) PO SCH (06:11)
[2018-03-29] MEDS: ACETAMINOPHEN 325 MG TABLET (FP) PO PRN (06:12)
[2018-03-29 06:39] VITALS: BP 116/76; PULSE 91; TEMP 98.4
[2018-03-29] MEDS: NICOTINE POLACRILEX 2 MG GUM BUC PRN (07:37)
[2018-03-29] MEDS: IBUPROFEN 400 MG TABLET (FP) PO PRN (09:13)
[2018-03-29] MEDS: PANTOPRAZOLE 40 MG TABLET (FP) PO SCH (09:14)
[2018-03-29] MEDS: risperiDONE 1 MG TABLET (FP) PO SCH (09:14)
[2018-03-29] MEDS: PRENATAL VITAMINS W/ FOLIC ACID TABLET (FP) PO SCH (09:14)
[2018-03-29] MEDS: BACITRACIN 0.9 GM PACKET TP SCH (09:15)
[2018-03-29] MEDS: NICOTINE 14 MG/24 HOURS TOPICAL PATCH TD SCH (10:30)
--- NOTE | 2018-03-29 10:46 | PN ---
[facility] Progress Note Note: Patient has completed this program and he is discharged today. He has partially met his treatment goals and will be addressing his issues in penitentiary treatment at [facility] at [address] [place] [address]. Refer to staff note for more information. Scripts for 30 days supply of Risperdal 1 mg po BID and Depakote 250 mg po HS are electronically transmitted to [facility] at [address] [place] [address].
--- NOTE | 2018-03-29 15:39 | PN ---
[facility] Progress Note Note: PT REQUESTS DISCHARGING TODAY TO FOLLOW UP WITH HIS SURGICAL APPOINTMENT AT [facility]. PT REPORTS HE HAD ABDOMINAL SX 3 WEEKS AGO. PT WAS ADMITTED ONE WEEK AGO TO REHAB. PT CURRENTLY HAS AN ABDOMINAL BINDER IN PLACE. ALERT O X 3. Vital Signs - 24 hr 03/29/18 03/29/18 03/29/18 00:30 03:26 06:00 Temperature 98.4 F Pulse Rate 91 H Respiratory 16 16 18 Rate Blood Pressure 116/76 NAD PLAN;D/C TODAY TO F/U WITH SURGICAL APPOINTMENT.
== END 2018-03-29 11:00 | disposition home or self-care (01) | DRG 772 ==
LOC: YASAS 12:57 → Y3W 12:58
PROVIDERS: ADMIT Psychiatry & Neurology Psychiatry; ATTEND Psychiatry & Neurology Psychiatry
PROC: HZ42ZZZ Group Counseling for Substance Abuse Treatment, Cognitive-Behavioral (ICD-10-PCS; principal; 2018-03-19)
DX: F11.20 Opioid dependence, uncomplicated (principal); F14.20 Cocaine dependence, uncomplicated; F17.210 Nicotine dependence, cigarettes, uncomplicated; F20.9 Schizophrenia, unspecified; F19.24 Other psychoactive substance dependence with psychoactive substance-induced mood disorder; F19.282 Other psychoactive substance dependence with psychoactive substance-induced sleep disorder; J44.9 Chronic obstructive pulmonary disease, unspecified; K21.9 Gastro-esophageal reflux disease without esophagitis; M12.9 Arthropathy, unspecified; M54.5 Low back pain
CPT/HCPCS: 90670; 90688; G0008; G0009; J2794

== ENCOUNTER 2018-03-23 12:14 | Emergency (ER) | payer OTHER ==
--- NOTE | 2018-03-23 12:29 | PDOC ---
Attending Attestation - Resident Resident Name: Chace Hatch - HPI HPI: 03/25/18 07:16 pt presents to the ED [place] [facility] [place]. Patient had a surgery two weeks ago for ventral hernia repair. Olamide were removed several days ago by [facility]. Facility is concerned because there has been some oozing from the wound. Patient complains of persistent post surgical pain and requests percoset, but denies fever, nausea or vomiting. Able to tolerate normal diet with no difficulty. Patient also has symmetric swelling of both legs that started several days ago. Denies chest complaints. Denies pain. - Physicial Exam PE: 03/25/18 07:52 Agree with resident exam. Abdomen is soft, non tender, non distended without guarding or rebound. Wound is mostly completely healed. Two small (<1 cm) areas where the wound is open to the subcutaneous tissue. Small amount of serosanguinous fluid present. No erythema. Minimal tenderness. Bilateral, symmetric pitting edema to the knee. No calf tenderness. No erythema. - Medical Decision Making 03/25/18 07:55 Pt presents to the ED for evaluation of abdominal wound. No signs of infection. Small areas of opening into the subcutaneous tissue, but no opening into the abdominal cavity. No signs of infection. Steristrips placed over the wound. Patient can follow up with outpatient surgery. Given the new onset bilateral leg edema in the setting of recent surgery, duplex checked to rule out DVT and is negative. Will discharge to [facility] [place].
--- NOTE | 2018-03-23 12:34 | PDOC ---
History of Present Illness - General Stated Complaint: ABD PAIN Time Seen by Provider: 03/23/18 12:26 History Source: Patient, Old Records Exam Limitations: No Limitations - History of Present Illness Initial Comments: HPI: 57 y/o male presenting to [facility] ER from [facility] Detox complaining of abdominal pain and bilateral lower leg swelling. Pt is s/p ventral hernia repair at [facility] one week ago by unknown surgeon. Expressed concern that [facility] was not giving him the medication (Percocet and Oxycodone) prescribed by the surgeon. Pt is undergoing inpatient detox for opiate dependence. Surgical sutures were removed by practitioner at [facility] yesterday and covered with Steri Strips and a dry dressing. Endorses serosanguinous discharge from wound over past several days. Denies fevers, chills, or diaphoresis. Additionally, pt is complaining of several days of bilateral lower extremity swelling. Endorses long periods of standing while at [facility], which is corroborated by progress notes in [facility]. Has been wearing compression stockings, which has helped. Left leg is mildly more swollen than right. H/o of left thigh fracture in 1988 per [facility] H&P noted 03/19/2018. Social Hx: - H/o EtOH abuse, denies drinking in past several weeks - Opiate dependence/abuse Medical Hx: - Schizophrenia, managed with Depakote Past History - Past Medical History Allergies/Adverse Reactions: Allergies Allergy/AdvReac Type Severity Reaction Status Date / Time bryan Allergy Verified 03/23/18 12:35 cheese Allergy Verified 03/23/18 12:35 Home Medications: Ambulatory Orders Divalproex [Depakote -] 250 mg PO DAILY 03/15/18 Docusate Sodium [Colace] 1 cap PO TID 03/15/18 Risperidone 1 mg PO BID 03/15/18 Asthma: No Cardiac Disorders: No COPD: Yes Diabetes: No GI Disorders: No Disorders: No HTN: No Kidney Stones: No Seizures: No - Surgical History Abdominal Surgery: Yes (HERNIA REPAIR 03/12/18) Appendectomy: No Cardiac Surgery: No Cholecystectomy: No Lung Surgery: No Neurologic Surgery: No Orthopedic Surgery: No - Reproductive History Testicular Surgery: No - Suicide/Smoking/Psychosocial Hx Smoking History: Current every day smoker Have you smoked in the past 12 months: Yes Number of Cigarettes Smoked Daily: 10 'Breaking Loose' booklet given: 03/15/18 Hx Alcohol Use: Yes Drug/Substance Use Hx: Yes Substance Use Type: Alcohol (Started drinking alcohol at age 14, consumes 2 pints of liquor & a 6pk of beer daily. Last drank on 03/14/18), Cocaine ( Started smoking crack cocaine at age 22, consumes $100 worth daily. Last smoked on 03/12/18), Heroin (Started using heroin at age 17, consumes 15 bags daily. Last used on 03/14/18) Hx Substance Use Treatment: Yes (Multiple previous inpt detox & rehab admissions ) Review of Systems - Review of Systems Able to Perform ROS?: Yes Comments:: In addition to that documented in the HPI above, the additional ROS was obtained : Constitutional: Denies fevers or chills ENMT: Denies sore throat CV: Denies chest pain Resp: Denies acute SOB GI: Denies vomiting or diarrhea Heme: Serosanguinous discharge from post-op wound *Physical Exam - Physical Exam Comments: Constitutional: Well-developed, well-nourished male in no acute distress or obvious discomfort. Found semi-fowlers on hospital bed. Alert and oriented x4. Answered all questions appropriately and completely. Speech was non-labored, non -pressured. Head: Normocephalic. No obvious external signs of trauma. Eyes: Sclerae white. EARS: Hearing grossly intact. NOSE: No nasal discharge. Neck: Supple, trachea is midline. Cardiovascular: Regular rate and regular rhythm. No murmur, rubs, clicks, or gallops. Peripheral pulses: Radial pulses full. Respiratory: Breathing unlabored. Equal chest rise and fall. Clear to auscultation bilaterally. No stridor, no wheezing, no rhonchi. Gastrointestinal: 6 cm linear surgical site on midline of abdomen with steri strips and dressing in place. Serosangenous fluid noted on bandage, which was taken down. Wound is well approximated but subcutaneous tissue minimally exposed in inferior 1/4. No carrizales watery discharge, erythema, or other cellulitic lesions. Pt endorses tenderness in all quadrants, flanks, sternum, and pelvis; pt able to stand and bend at waist to remove socks without obvious discomfort. Neuro: Alert and oriented. Moving all four extremities spontaneously. Skin/MSK: Mild bilateral lower extremity edema to distal 1/3. Slightly worse in L > R. Pt endorses diffuse pain but able to stand and walk unassisted throughout the department without difficulty or obvious discomfort. No erythema , skin breakdown, or weeping. 2+ pedal pulses bilaterally. Normal active ROM demonstrated. Psych: Affect: appropriate. Mood: normal. Medical Decision Making - Medical Decision Making *Reviewed vital signs, nursing notes, and prior visit documentation (if available). 57 y/o male with chief complaint of [facility] failure to medicate with Percocet and Oxycodone following surgery. Explained that the department will not prescribe opiates for this pain. Ordered toradol for symptom relief. Additionally concerned about serosanguinous discharge from recent ventral hernia repair site. Site well appearing. Low suspicion for infection or dehiscence. Will replace steri strips and cover with new dry dressing. Will instruct the pt to follow up with surgeon of record. Lastly, complaining of bilateral lower extremity swelling in setting of documents hours of standing at detox and recent surgery. No history of blood clots, skin changes, or point tenderness. Low suspicion for DVT. Suspect dependent edema, likely worse in left leg as pt is s/p remote orthopedic surgery in the extremity. Will obtain bilateral venous duplex u/s given recent surgery. U/S unremarkable for DVT in either lower extremity. Continue to suspect dependent edema secondary to prolonged standing. New steri strips and clean dressing applied. Wound remains well approximated. Discussed imaging and physical exam findings with pt. Answered all questions. Provided return precautions. Pt expressed verbal understanding and agreement with plan to discharge back to [facility] with outpatient follow up. *DC/Admit/Observation/Transfer Diagnosis at time of Disposition: Encounter for postoperative wound check, Swelling of lower leg - Discharge Dispostion Disposition: HOME Condition at time of disposition: Good Decision to Admit order: No - Referrals - Patient Instructions Printed Discharge Instructions: How to Care for a Surgical Wound Additional Instructions: You were seen today for inspection of your surgical wound and lower leg swelling. Your surgical site looks good and is healing. The dressings were changed. Keep the area clean and dry. You need to follow up with the surgeon at [facility] for routine care. Your legs are likely swelling from standing up for long periods of time. The swelling will go away with sitting and raising your legs. However, do not stay in bed. You can take over the counter Tylenol or Advil as needed for pain. Take as directed on the package insert. Do not exceed the recommended dosage. Go to the nearest emergency department if your condition worsens or you feel like you need additional emergency evaluation. Print Language: FRENCH - Post Discharge Activity
[2018-03-23 12:39] VITALS: BP 122/77; PULSE 76; TEMP 97.9; BMI 25.1
[2018-03-23] MEDS ORDERED: KETOROLAC TROMETHAMINE 30 MG/1 ML VIAL IM ONE (13:16)
[2018-03-23] MEDS ORDERED: KETOROLAC TROMETHAMINE 30 MG/1 ML VIAL ONE (14:25)
== END 2018-03-23 15:30 | disposition home or self-care (01) ==
LOC: JER 12:14
DX: Z48.89 Encounter for other specified surgical aftercare (principal); F11.20 Opioid dependence, uncomplicated; R60.0 Localized edema
CPT/HCPCS: 93970-TC; 99281-25

== ENCOUNTER 2018-05-10 15:32 | Inpatient (IN) | payer OTHER ==
[2018-05-10 15:40] VITALS: BMI 26.4
--- NOTE | 2018-05-10 16:27 | HP ---
COWS - Scale Resting Pulse: 1= MO 81-100 Sweatin= Chills/Flushing Restless Observation: 1= Difficult to Sit Still Pupil Size: 0= Normal to Room Light Bone or Joint Aches: 2= Severe Diffuse Aches Runny Nose/ Eye Tearin= Runny Nose/Eyes GI Upset > 30mins: 1= Stomach Cramp Tremor Observation: 1= Tremor [place], Not Seen Yawning Observation: 0= None Anxiety or Irritability: 1=Feels Anxious/Irritable Goose Flesh Skin: 3=Piloerection COWS Score: 13 CIWA Score - Admission Criteria OASAS Guidelines: Admission for Medically Managed Detox: Requires at least one of the followin. CIWA greater than 12 2. Seizures within the past 24 hours 3. Delirium tremens within the past 24 hours 4. Hallucinations within the past 24 hours 5. Acute intervention needed for co occurring medical disorder 6. Acute intervention needed for co occurring psychiatric disorder 7. Severe withdrawal that cannot be handled at a lower level of care (continued vomiting, continued diarrhea, abnormal vital signs) requiring intravenous medication and/or fluids 8. Admission ROS [facility] Chief Complaint: here for heroin detox 58 yo with no h/o hernia, repaire 02/2018- well healed, on depakote and ? for MH reasons. Pt was admitted here for detox and completed rehab, restarted with heroin the same day of discharge. Sniffs heroin. Alcohol use began at age 14, uses 2 pints/day ,no seizures, Dt's Heroin use began at age 17, 6 bags/day sniffing, overdosed 3 years ago Crack/cocaine use began at age 22- rarely Nicotine use began at age 15.- 1/2 PPD DUR: no recent controlled substances UTox: opi, Bup, no ROSALINA Allergies/Adverse Reactions: Allergies Allergy/AdvReac Type Severity Reaction Status Date / Time bryan Allergy Verified 03/23/18 12:35 cheese Allergy Verified 03/23/18 12:35 - Ebola screening Have you traveled outside of the country in the last 21 days: No Have you been sick,other than usual withdrawal symptoms: No - Review of Systems Constitutional: No Symptoms Reported EENT: reports: No Symptoms Reported Respiratory: reports: No Symptoms reported Cardiac: reports: No Symptoms Reported GI: reports: No Symptoms Reported Patient History - Patient Medical History Hx Asthma: No Hx Chronic Obstructive Pulmonary Disease (COPD): Yes Hx Cardiac Disorders: No Hx Hypertension: No Hx Seizures: No Hx Diabetes: No Hx Gastrointestinal Disorders: No Hx Genitourinary Disorders: No Hx Sexually Transmitted Disorders: No Hx Renal Disease (ESRD): No Hx Depression: No Hx Suicide Attempt: No Hx Schizophrenia: Yes (on meds) - Patient Surgical History Past Surgical History: Yes Hx Neurologic Surgery: No Hx Cataract Extraction: No Hx Cardiac Surgery: No Hx Lung Surgery: No Hx Breast Surgery: No Hx Breast Biopsy: No Hx Abdominal Surgery: Yes (HERNIA REPAIR 03/12/18) Hx Appendectomy: No Hx Cholecystectomy: No Hx Genitourinary Surgery: No Hx Section: No Hx Orthopedic Surgery: No Anesthesia Reaction: No - PPD History Date: 03/17/18 PPD to be Administered?: No - Smoking Cessation Smoking history: Current every day smoker Have you smoked in the past 12 months: Yes Aproximately how many cigarettes per day: 10 Hx Chewing Tobacco Use: No Initiated information on smoking cessation: Yes 'Breaking Loose' booklet given: 05/10/18 - Substance & Tx. History Hx Alcohol Use: Yes (occasionally) Substance Use Type: Cocaine, Heroin, Opiates Hx Substance Use Treatment: Yes Family Disease History - Family Disease History Family Disease History: Heart Disease: Father Admission Physical Exam BHS - Vital Signs Vital Signs: Vital Signs - 24 hr 05/10/18 15:38 Temperature 98.4 F Pulse Rate 79 Respiratory 18 Rate Blood Pressure 119/74 - Physical General Appearance: Yes: Within Normal Limits HEENTM: Yes: Within Normal Limits Respiratory: Yes: Within Normal Limits Neck: Yes: Within Normal Limits Breast: Yes: Breast Exam Deferred Cardiology: Yes: Within Normal Limits, Regular Rate, S1, S2 Abdominal: Yes: Within Normal Limits, Surgical Scar Genitourinary: Yes: Within Normal Limits Back: Yes: Within Normal Limits Musculoskeletal: Yes: Within Normal Limits Extremities: Yes: Within Normal Limits Neurological: Yes: Within Normal Limits Integumentary: Yes: Within Normal Limits Lymphatic: Yes: Within Normal Limits - Diagnostic (1) History of abdominal surgery Current Visit: No Status: Acute Comment: Patient had an epigastric hernia repair on 03/12/18. (2) Opioid dependence with withdrawal Current Visit: No Status: Acute (3) Nicotine dependence Current Visit: No Status: Chronic Qualifiers: Nicotine product type: cigarettes Substance use status: uncomplicated Qualified Code(s): F17.210 - Nicotine dependence, cigarettes, uncomplicated [facility] Breath Alcohol Content Breath Alcohol Content: 0 Urine Drug Screen - Results Drug Screen Negative: No Urine Drug Screen Results: OPI-Opiates, BUP-Suboxone Inpatient Rehab Admission - Rehab Decision to Admit Inpatient rehab admission?: No
[2018-05-10] MEDS ORDERED: MAG HYDROX/AL HYDROX/SIMETH 30 ML UNIT-DOSE CUP PO PRN (16:32)
[2018-05-10] MEDS ORDERED: MAGNESIUM HYDROX 2400MG/30ML ORAL SUSPENSION 30 ML CUP PO PRN (16:32)
[2018-05-10] MEDS ORDERED: MENTHOL/PHENOL 1 EACH UD MM PRN (16:32)
[2018-05-10] MEDS ORDERED: hydrOXYzine PAMOATE 25 MG CAPSULE (FP) PO PRN (16:32)
[2018-05-10] MEDS ORDERED: guaiFENesin/D-METHORPHAN HB 10 ML UNIT-DOSE CUPS PO PRN (16:32)
[2018-05-10] MEDS ORDERED: P-EPHED 60MG/TRIPROLIDI 2.5MG TABLET PO PRN (16:32)
[2018-05-10] MEDS ORDERED: MAGNESIUM CITRATE 300 ML BOTTLE PO PRN (16:32)
[2018-05-10] MEDS ORDERED: LOPERAMIDE HCL 2 MG CAPSULE PO PRN (16:32)
[2018-05-10] MEDS ORDERED: METHADONE HCL 10 MG TABLET (FOR DETOX USE ONLY) PO ONE ×3 (17:00→23:00)
[2018-05-10] MEDS: THIAMINE HCL 100 MG TABLET (FP) PO SCH (21:23)
[2018-05-10] MEDS: diazePAM 5 MG TABLET PO PRN (21:23)
[2018-05-10 23:31] LABS: URINE APPEARANCE CLEAR; URINE BILIRUBIN NEGATIVE (<2.0 mg/dL); URINE COLOR LTYELLOW; URINE GLUCOSE (UA) NEGATIVE (NEGATIVE); URINE KETONE NEGATIVE (NEGATIVE); URINE LEUK ESTERASE NEGATIVE (NEGATIVE); URINE NITRITE NEGATIVE (NEGATIVE); URINE PROTEIN NEGATIVE (NEGATIVE); URINE UROBILINOGEN NEGATIVE mg/dL (0.2-1.0)
[2018-05-11] MEDS: ACETAMINOPHEN 325 MG TABLET (FP) PO PRN ×2 (09:20→16:23)
[2018-05-11] MEDS: PRENATAL VITAMINS W/ FOLIC ACID TABLET (FP) PO SCH (09:22)
[2018-05-11] MEDS: diazePAM 5 MG TABLET PO PRN ×2 (09:23→22:20)
--- NOTE | 2018-05-11 09:55 | CONSULT ---
[facility] Psychiatric Consult - Data Date of interview: 05/11/18 Admission source: [facility] Identifying data: Patient is a 58 year old single male, father of two, unemployed (denies receiving financial assistance), and is currently homeless. This is one of multiple admissions for patient. Patient admitted to for opiate dependence. Substance Abuse History: Smoking Cessation. Smoking history: Current every day smoker. Have you smoked in the past 12 months: Yes. Aproximately how many cigarettes per day: 10. Hx Chewing Tobacco Use: No. Initiated information on smoking cessation: Yes. 'Breaking Loose' booklet given: 05/10/18. - Substance & Tx. History. Hx Alcohol Use: Yes (occasionally). Substance Use Type: Cocaine , Heroin, Opiates. Hx Substance Use Treatment: Yes Medical History: Significant for COPD, Arthritis,back pain, history of recent surgery forabdominal hernia repairand orthosurgery for fracture left thigh in 1988. Psychiatric History: Patient reports one psychiatric hospitalization at [facility] during the period of his incarceration. Mr. Zelaya reports a history of schizophrenia. Patient is prescribed risperdal 1mg BID + Depakote 250mg HS. Pharmacy claims reviewed and noted that a prescription for Depakote 250mg on 04/27 and Risperdal 1mg BID on 05/05/18. Patient denies current outpatient psychiatric care. Mr. Zelaya receives his medication refills from his Primary care physican. As per Dr. Cain's note on 03/19/19 patient reported that his only psychiatric admission was to [facility] in Oct 2015 for auditory hallucinations, paranoid and homicidal ideations. At present, patient denies psychotic symtoms and is agreeable to resuming medications. Physical/Sexual Abuse/Trauma History: denies. Mental Status Exam - Mental Status Exam Alert and Oriented to: Time, Place, Person Cognitive Function: Good Patient Appearance: Disheveled Mood: Euthymic Affect: Appropriate Patient Behavior: Appropriate, Cooperative Speech Pattern: Appropriate Voice Loudness: Normal Thought Process: Intact, Goal Oriented Thought Disorder: Not Present Hallucinations: Denies Suicidal Ideation: Denies Homicidal Ideation: Denies Insight/Judgement: Poor Sleep: Fair Appetite: Fair Muscle strength/Tone: Normal Gait/Station: Normal Psychiatric Findings - Problem List ([place] 1, 2,3) (1) Opioid dependence with withdrawal Status: Acute (2) Nicotine dependence Status: Chronic Qualifiers: Nicotine product type: cigarettes Substance use status: uncomplicated Qualified Code(s): F17.210 - Nicotine dependence, cigarettes, uncomplicated (3) Schizophrenia Status: Chronic (4) Opioid dependence Status: Acute - Initial Treatment Plan Initial Treatment Plan: Psychoeducation provided. Detoxification in progress. Will order Risperdal 1mg BID + Depakote 250mg HS. Benefits and side effects discussed. Verbal consent given.
[2018-05-11] MEDS ORDERED: METHADONE HCL 10 MG TABLET (FOR DETOX USE ONLY) PO ONE (10:00)
[2018-05-11] MEDS: risperiDONE 1 MG TABLET (FP) PO SCH ×2 (10:22→22:20)
[2018-05-11 11:23] LABS: ALBUMIN 3.2 g/dl (3.4-5.0); ALK PHOS 59 U/L (45-117); ANION GAP 5 MMOL/L (8-16); BILIRUBIN,TOTAL 0.4 mg/dL (0.2-1); BLOOD UREA NITROGEN 9 mg/dL (7-18); CALCIUM 8.4 mg/dL (8.5-10.1); CHLORIDE 106 mmol/L (98-107); CO2 30 mmol/L (21-32); CREATININE 0.9 mg/dL (0.55-1.3); GLUCOSE,RANDOM 74 mg/dL (74-106); POTASSIUM 4.6 mmol/L (3.5-5.1); SGOT/AST 14 U/L (15-37); SGPT/ALT 20 U/L (13-61); SODIUM 141 mmol/L (136-145); TOT PROT 6.4 g/dl (6.4-8.2)
[2018-05-11 11:56] LABS: HEMATOCRIT 40.5 % (35.4-49); HEMOGLOBIN 13.6 GM/dL (11.7-16.9); MCHC 33.6 g/dl (32.0-35.9); MEAN CELL VOLUME 92.4 fl (80-96); MEAN PLT VOLUME 9.5 fl (7.5-11.1); PLATELET COUNT 162 K/MM3 (134-434); RBC 4.38 M/mm3 (4.00-5.60); RDW 14.3 % (11.9-15.9); WHITE BLOOD COUNT 5.7 K/mm3 (4.0-10.0)
--- NOTE | 2018-05-11 12:06 | PN ---
S COWS - Scale Resting Pulse: 0= [place] 80 or Below Sweatin= Chills/Flushing Restless Observation: 0= Sits Still Pupil Size: 1= Pupils >than Normal Bone or Joint Aches: 2= Severe Diffuse Aches Runny Nose/ Eye Tearin= Nasal Congestion GI Upset > 30mins: 1= Stomach Cramp Tremor Observation of Outstretched Hands: 2= Slight Tremor Visible Yawning Observation: 1= 1-2x During Session Anxiety or Irritability: 2=Irritable/Anxious Goose Flesh Skin: 0=Smooth Skin COWS Score: 11 BHS Progress Note (SOAP) Subjective: body aches tremor sweating muscle cramping Objective: 05/11/18 12:06 Vital Signs Temperature 97.5 F L 05/11/18 09:38 Pulse Rate 70 05/11/18 09:38 Respiratory Rate 20 05/11/18 09:38 Blood Pressure 116/80 05/11/18 09:38 O2 Sat by Pulse Oximetry (%) Laboratory Last Values Sodium 141 mmol/L (136-145) 05/11/18 08:00 Potassium 4.6 mmol/L (3.5-5.1) 05/11/18 08:00 Chloride 106 mmol/L (98-107) 05/11/18 08:00 Carbon Dioxide 30 mmol/L (21-32) 05/11/18 08:00 Anion Gap 5 MMOL/L (8-16) L 05/11/18 08:00 BUN 9 mg/dL (7-18) 05/11/18 08:00 Creatinine 0.9 mg/dL (0.55-1.3) 05/11/18 08:00 Creat Clearance w eGFR > 60 (>60) 05/11/18 08:00 Random Glucose 74 mg/dL (74-106) 05/11/18 08:00 Calcium 8.4 mg/dL (8.5-10.1) L 05/11/18 08:00 Total Bilirubin 0.4 mg/dL (0.2-1) 05/11/18 08:00 AST 14 U/L (15-37) L 05/11/18 08:00 ALT 20 U/L (13-61) 05/11/18 08:00 Alkaline Phosphatase 59 U/L (45-117) 05/11/18 08:00 Total Protein 6.4 g/dl (6.4-8.2) 05/11/18 08:00 Albumin 3.2 g/dl (3.4-5.0) L 05/11/18 08:00 Urine Color Ltyellow 05/10/18 22:20 Urine Appearance Clear 05/10/18 22:20 Urine pH 7.0 (5.0-8.0) D 05/10/18 22:20 Ur Specific Ivor 1.016 (1.010-1.035) 05/10/18 22:20 Urine Protein Negative (NEGATIVE) 05/10/18 22:20 Urine Glucose (UA) Negative (NEGATIVE) 05/10/18 22:20 Urine Ketones Negative (NEGATIVE) 05/10/18 22:20 Urine Blood Negative (NEGATIVE) 05/10/18 22:20 Urine Nitrite Negative (NEGATIVE) 05/10/18 22:20 Urine Bilirubin Negative (<2.0 mg/dL) 05/10/18 22:20 Urine Urobilinogen Negative mg/dL (0.2-1.0) 05/10/18 22:20 Ur Leukocyte Esterase Negative (NEGATIVE) 05/10/18 22:20 lab noted Assessment: 05/11/18 12:07 withdrawal sx 05/11/18 12:07 chronic lower extremities swelling Plan: continue detox elevation both legs
[2018-05-11] MEDS: DIVALPROEX SODIUM 250 MG TABLET E.C. PO SCH (22:20)
[2018-05-11] MEDS: THIAMINE HCL 100 MG TABLET (FP) PO SCH (22:20)
[2018-05-12] MEDS: ACETAMINOPHEN 325 MG TABLET (FP) PO PRN ×4 (06:36→18:58)
[2018-05-12] MEDS: IBUPROFEN 400 MG TABLET (FP) PO PRN ×2 (08:34→13:36)
--- NOTE | 2018-05-12 08:40 | PN ---
BHS COWS - Scale Resting Pulse: 0= [place] 80 or Below Sweatin= Chills/Flushing Restless Observation: 1= Difficult to Sit Still Pupil Size: 1= Pupils >than Normal Bone or Joint Aches: 1= Mild Discomfort Runny Nose/ Eye Tearin= Nasal Congestion GI Upset > 30mins: 1= Stomach Cramp Tremor Observation of Outstretched Hands: 1= Tremor [place], Not Seen Yawning Observation: 1= 1-2x During Session Anxiety or Irritability: 1=Feels Anxious/Irritable Goose Flesh Skin: 0=Smooth Skin COWS Score: 9 BHS Progress Note (SOAP) Subjective: restlessness ambulating on [address] anxiety body aches Objective: 05/12/18 08:39 Vital Signs Temperature 97.5 F L 05/12/18 06:40 Pulse Rate 72 05/12/18 06:40 Respiratory Rate 18 05/12/18 06:40 Blood Pressure 113/77 05/12/18 06:40 O2 Sat by Pulse Oximetry (%) Laboratory Last Values WBC 5.7 K/mm3 (4.0-10.0) 05/11/18 08:00 RBC 4.38 M/mm3 (4.00-5.60) 05/11/18 08:00 Hgb 13.6 GM/dL (11.7-16.9) 05/11/18 08:00 Hct 40.5 % (35.4-49) 05/11/18 08:00 MCV 92.4 fl (80-96) 05/11/18 08:00 MCH 31.0 pg (25.7-33.7) 05/11/18 08:00 MCHC 33.6 g/dl (32.0-35.9) 05/11/18 08:00 RDW 14.3 % (11.9-15.9) 05/11/18 08:00 Plt Count 162 K/MM3 (134-434) 05/11/18 08:00 MPV 9.5 fl (7.5-11.1) 05/11/18 08:00 Sodium 141 mmol/L (136-145) 05/11/18 08:00 Potassium 4.6 mmol/L (3.5-5.1) 05/11/18 08:00 Chloride 106 mmol/L (98-107) 05/11/18 08:00 Carbon Dioxide 30 mmol/L (21-32) 05/11/18 08:00 Anion Gap 5 MMOL/L (8-16) L 05/11/18 08:00 BUN 9 mg/dL (7-18) 05/11/18 08:00 Creatinine 0.9 mg/dL (0.55-1.3) 05/11/18 08:00 Creat Clearance w eGFR > 60 (>60) 05/11/18 08:00 Random Glucose 74 mg/dL (74-106) 05/11/18 08:00 Calcium 8.4 mg/dL (8.5-10.1) L 05/11/18 08:00 Total Bilirubin 0.4 mg/dL (0.2-1) 05/11/18 08:00 AST 14 U/L (15-37) L 05/11/18 08:00 ALT 20 U/L (13-61) 05/11/18 08:00 Alkaline Phosphatase 59 U/L (45-117) 05/11/18 08:00 Total Protein 6.4 g/dl (6.4-8.2) 05/11/18 08:00 Albumin 3.2 g/dl (3.4-5.0) L 05/11/18 08:00 Urine Color Ltyellow 05/10/18 22:20 Urine Appearance Clear 05/10/18 22:20 Urine pH 7.0 (5.0-8.0) D 05/10/18 22:20 Ur Specific [place] 1.016 (1.010-1.035) 05/10/18 22:20 Urine Protein Negative (NEGATIVE) 05/10/18 22:20 Urine Glucose (UA) Negative (NEGATIVE) 05/10/18 22:20 Urine Ketones Negative (NEGATIVE) 05/10/18 22:20 Urine Blood Negative (NEGATIVE) 05/10/18 22:20 Urine Nitrite Negative (NEGATIVE) 05/10/18 22:20 Urine Bilirubin Negative (<2.0 mg/dL) 05/10/18 22:20 Urine Urobilinogen Negative mg/dL (0.2-1.0) 05/10/18 22:20 Ur Leukocyte Esterase Negative (NEGATIVE) 05/10/18 22:20 RPR Titer Nonreactive (NONREACTIVE) 05/11/18 08:00 lab noted Assessment: 05/12/18 08:39 withdrawal sx Plan: continue detox may wear own shoes
[2018-05-12] MEDS: risperiDONE 1 MG TABLET (FP) PO SCH ×2 (09:51→22:13)
[2018-05-12] MEDS: PRENATAL VITAMINS W/ FOLIC ACID TABLET (FP) PO SCH (09:51)
[2018-05-12] MEDS: NICOTINE POLACRILEX 4 MG GUM BC PRN (09:54)
[2018-05-12] MEDS ORDERED: METHADONE HCL 5 MG TABLET (FOR DETOX USE ONLY) PO ONE (10:00)
[2018-05-12] MEDS: diazePAM 5 MG TABLET PO PRN ×2 (13:26→18:57)
[2018-05-12] MEDS: MELATONIN 5 MG TABLETS PO PRN (22:13)
[2018-05-12] MEDS: DIVALPROEX SODIUM 250 MG TABLET E.C. PO SCH (22:13)
[2018-05-12] MEDS: THIAMINE HCL 100 MG TABLET (FP) PO SCH (22:13)
[2018-05-13] MEDS: ACETAMINOPHEN 325 MG TABLET (FP) PO PRN ×4 (05:08→20:11)
[2018-05-13] MEDS ORDERED: METHADONE HCL 5 MG TABLET (FOR DETOX USE ONLY) PO ONE (10:00)
[2018-05-13] MEDS: risperiDONE 1 MG TABLET (FP) PO SCH ×2 (10:47→22:41)
[2018-05-13] MEDS: diazePAM 5 MG TABLET PO PRN (10:47)
[2018-05-13] MEDS: PRENATAL VITAMINS W/ FOLIC ACID TABLET (FP) PO SCH (10:47)
[2018-05-13] MEDS: IBUPROFEN 400 MG TABLET (FP) PO PRN (10:49)
[2018-05-13] MEDS: NICOTINE POLACRILEX 4 MG GUM BC PRN ×2 (10:50→17:36)
--- NOTE | 2018-05-13 13:34 | PN ---
BHS COWS - Scale Resting Pulse: 0= [place] 80 or Below Sweatin= Chills/Flushing Restless Observation: 0= Sits Still Pupil Size: 0= Normal to Room Light Bone or Joint Aches: 1= Mild Discomfort Runny Nose/ Eye Tearin= Nasal Congestion GI Upset > 30mins: 0= None Tremor Observation of Outstretched Hands: 1= Tremor [place], Not Seen Yawning Observation: 1= 1-2x During Session Anxiety or Irritability: 1=Feels Anxious/Irritable Goose Flesh Skin: 0=Smooth Skin COWS Score: 6 BHS Progress Note (SOAP) Subjective: body aches mild stuffy nose joints soreness mild muscle cramp Objective: 05/13/18 13:36 Vital Signs Temperature 96.6 F L 05/13/18 09:40 Pulse Rate 72 05/13/18 09:40 Respiratory Rate 20 05/13/18 09:40 Blood Pressure 112/78 05/13/18 09:40 O2 Sat by Pulse Oximetry (%) Laboratory Last Values WBC 5.7 K/mm3 (4.0-10.0) 05/11/18 08:00 RBC 4.38 M/mm3 (4.00-5.60) 05/11/18 08:00 Hgb 13.6 GM/dL (11.7-16.9) 05/11/18 08:00 Hct 40.5 % (35.4-49) 05/11/18 08:00 MCV 92.4 fl (80-96) 05/11/18 08:00 MCH 31.0 pg (25.7-33.7) 05/11/18 08:00 MCHC 33.6 g/dl (32.0-35.9) 05/11/18 08:00 RDW 14.3 % (11.9-15.9) 05/11/18 08:00 Plt Count 162 K/MM3 (134-434) 05/11/18 08:00 MPV 9.5 fl (7.5-11.1) 05/11/18 08:00 Sodium 141 mmol/L (136-145) 05/11/18 08:00 Potassium 4.6 mmol/L (3.5-5.1) 05/11/18 08:00 Chloride 106 mmol/L (98-107) 05/11/18 08:00 Carbon Dioxide 30 mmol/L (21-32) 05/11/18 08:00 Anion Gap 5 MMOL/L (8-16) L 05/11/18 08:00 BUN 9 mg/dL (7-18) 05/11/18 08:00 Creatinine 0.9 mg/dL (0.55-1.3) 05/11/18 08:00 Creat Clearance w eGFR > 60 (>60) 05/11/18 08:00 Random Glucose 74 mg/dL (74-106) 05/11/18 08:00 Calcium 8.4 mg/dL (8.5-10.1) L 05/11/18 08:00 Total Bilirubin 0.4 mg/dL (0.2-1) 05/11/18 08:00 AST 14 U/L (15-37) L 05/11/18 08:00 ALT 20 U/L (13-61) 05/11/18 08:00 Alkaline Phosphatase 59 U/L (45-117) 05/11/18 08:00 Total Protein 6.4 g/dl (6.4-8.2) 05/11/18 08:00 Albumin 3.2 g/dl (3.4-5.0) L 05/11/18 08:00 Urine Color Ltyellow 05/10/18 22:20 Urine Appearance Clear 05/10/18 22:20 Urine pH 7.0 (5.0-8.0) D 05/10/18 22:20 Ur Specific [place] 1.016 (1.010-1.035) 05/10/18 22:20 Urine Protein Negative (NEGATIVE) 05/10/18 22:20 Urine Glucose (UA) Negative (NEGATIVE) 05/10/18 22:20 Urine Ketones Negative (NEGATIVE) 05/10/18 22:20 Urine Blood Negative (NEGATIVE) 05/10/18 22:20 Urine Nitrite Negative (NEGATIVE) 05/10/18 22:20 Urine Bilirubin Negative (<2.0 mg/dL) 05/10/18 22:20 Urine Urobilinogen Negative mg/dL (0.2-1.0) 05/10/18 22:20 Ur Leukocyte Esterase Negative (NEGATIVE) 05/10/18 22:20 RPR Titer Nonreactive (NONREACTIVE) 05/11/18 08:00 lab noted Assessment: 05/13/18 13:36 withdrawal sx patient wants suboxone maintenance program Plan: continue detox discuss the risks and benefits of suboxone
[2018-05-13] MEDS: THIAMINE HCL 100 MG TABLET (FP) PO SCH (22:41)
[2018-05-13] MEDS: DIVALPROEX SODIUM 250 MG TABLET E.C. PO SCH (22:41)
[2018-05-13] MEDS: MELATONIN 5 MG TABLETS PO PRN (22:41)
[2018-05-14] MEDS: ACETAMINOPHEN 325 MG TABLET (FP) PO PRN (05:12)
[2018-05-14] MEDS: NICOTINE POLACRILEX 4 MG GUM BC PRN ×2 (06:27→08:33)
[2018-05-14] MEDS: PRENATAL VITAMINS W/ FOLIC ACID TABLET (FP) PO SCH (09:22)
[2018-05-14] MEDS ORDERED: METHADONE HCL 5 MG TABLET (FOR DETOX USE ONLY) PO ONE (09:30)
[2018-05-14 09:35] VITALS: BP 123/82; PULSE 82; TEMP 97.2
[2018-05-14] MEDS ORDERED: METHADONE HCL 10 MG TABLET (FOR DETOX USE ONLY) PO ONE (10:00)
--- NOTE | 2018-05-14 21:10 | PN ---
BHS Progress Note (SOAP) Subjective: Patient Reports That Current Withdrawal / Detox Symptoms are minimal in Severity and That He feels Well Overall. Objective: PATIENT A & O X 3, OBSERVED AMBULATING ON UNIT. IN NO ACUTE DISTRESS. 05/14/18 21:09 Vital Signs Temperature 97.2 F L 05/14/18 09:35 Pulse Rate 82 05/14/18 09:35 Respiratory Rate 18 05/14/18 09:35 Blood Pressure 123/82 05/14/18 09:35 O2 Sat by Pulse Oximetry (%) Laboratory Tests 05/10/18 05/11/18 05/11/18 22:20 08:00 08:00 WBC 5.7 RBC 4.38 Hgb 13.6 Hct 40.5 MCV 92.4 MCH 31.0 MCHC 33.6 RDW 14.3 Plt Count 162 MPV 9.5 Sodium 141 Potassium 4.6 Chloride 106 Carbon Dioxide 30 Anion Gap 5 L BUN 9 Creatinine 0.9 Creat Clearance w eGFR > 60 Random Glucose 74 Calcium 8.4 L Total Bilirubin 0.4 AST 14 L ALT 20 Alkaline Phosphatase 59 Total Protein 6.4 Albumin 3.2 L Urine Color Ltyellow Urine Appearance Clear Urine pH 7.0 D Ur Specific [place] 1.016 Urine Protein Negative Urine Glucose (UA) Negative Urine Ketones Negative Urine Blood Negative Urine Nitrite Negative Urine Bilirubin Negative Urine Urobilinogen Negative Ur Leukocyte Esterase Negative RPR Titer 05/11/18 08:00 WBC RBC Hgb Hct MCV MCH MCHC RDW Plt Count MPV Sodium Potassium Chloride Carbon Dioxide Anion Gap BUN Creatinine Creat Clearance w eGFR Random Glucose Calcium Total Bilirubin AST ALT Alkaline Phosphatase Total Protein Albumin Urine Color Urine Appearance Urine pH Ur Specific [place] Urine Protein Urine Glucose (UA) Urine Ketones Urine Blood Urine Nitrite Urine Bilirubin Urine Urobilinogen Ur Leukocyte Esterase RPR Titer Nonreactive LABS NOTED. Assessment: 05/14/18 21:09 COMPLETION OF DETOX REGIMEN. Plan: PATIENT SCHEDULED FOR DISCHARGE FROM DETOX UNIT TODAY.
--- NOTE | 2018-05-14 21:12 | DS ---
[facility] Detox Discharge Summary Admission Date: 05/10/18 Discharge Date: 05/14/18 - History Present History: Opioid Dependence Additional Comments: PATIENT GOING HOME FOR TIME BEING TO ATTEND TO PERSONAL ISSUES AND WILL LATER CONSIDER [facility] IN NEXT FEW DAYS. PATIENT WAS DISCHARGED FROM DETOX UNIT IN STABLE MEDICAL CONDITION. Pertinent Past History: Nicotine Dependence, History of Schizophrenia, History Of Abdominal Surgery. - Physical Exam Results Vital Signs: Vital Signs Temperature 97.2 F L 05/14/18 09:35 Pulse Rate 82 05/14/18 09:35 Respiratory Rate 18 05/14/18 09:35 Blood Pressure 123/82 05/14/18 09:35 O2 Sat by Pulse Oximetry (%) Pertinent Admission Physical Exam Findings: WITHDRAWAL SYMPTOMS. Laboratory Tests 05/10/18 05/11/18 05/11/18 22:20 08:00 08:00 WBC 5.7 RBC 4.38 Hgb 13.6 Hct 40.5 MCV 92.4 MCH 31.0 MCHC 33.6 RDW 14.3 Plt Count 162 MPV 9.5 Sodium 141 Potassium 4.6 Chloride 106 Carbon Dioxide 30 Anion Gap 5 L BUN 9 Creatinine 0.9 Creat Clearance w eGFR > 60 Random Glucose 74 Calcium 8.4 L Total Bilirubin 0.4 AST 14 L ALT 20 Alkaline Phosphatase 59 Total Protein 6.4 Albumin 3.2 L Urine Color Ltyellow Urine Appearance Clear Urine pH 7.0 D Ur Specific [place] 1.016 Urine Protein Negative Urine Glucose (UA) Negative Urine Ketones Negative Urine Blood Negative Urine Nitrite Negative Urine Bilirubin Negative Urine Urobilinogen Negative Ur Leukocyte Esterase Negative RPR Titer 05/11/18 08:00 WBC RBC Hgb Hct MCV MCH MCHC RDW Plt Count MPV Sodium Potassium Chloride Carbon Dioxide Anion Gap BUN Creatinine Creat Clearance w eGFR Random Glucose Calcium Total Bilirubin AST ALT Alkaline Phosphatase Total Protein Albumin Urine Color Urine Appearance Urine pH Ur Specific [place] Urine Protein Urine Glucose (UA) Urine Ketones Urine Blood Urine Nitrite Urine Bilirubin Urine Urobilinogen Ur Leukocyte Esterase RPR Titer Nonreactive LABS NOTED. - Treatment Hospital Course: Detox Protocol Followed, Detoxed Safely, Responded well, Discharged Condition Good Patient has Accepted a Rehab Referral to: WILL ATTEND TO PERSONAL ISSUE WILL CONSIDER REHAB ADMISSION FOR LATER DATE. - Medication Discharge Medications: Ambulatory Orders Divalproex [Depakote -] 250 mg PO DAILY 03/15/18 Docusate Sodium [Colace] 1 cap PO TID 03/15/18 Divalproex [Depakote -] 250 mg PO HS #30 tablet.ec 03/29/18 Risperidone 1 mg PO BID #60 tablet 03/29/18 - Diagnosis (1) History of abdominal surgery Status: Acute (2) Opioid dependence with withdrawal Status: Acute (3) Nicotine dependence, uncomplicated Status: Chronic Qualifiers: Nicotine product type: cigarettes Qualified Code(s): F17.210 - Nicotine dependence, cigarettes, uncomplicated (4) Schizophrenia Status: Chronic Qualifiers: Schizophrenia type: unspecified Qualified Code(s): F20.9 - Schizophrenia, unspecified - AMA Did Patient Leave Against Medical Advice: No
[2018-05-15] MEDS ORDERED: METHADONE HCL 5 MG TABLET (FOR DETOX USE ONLY) PO ONE ×2 (06:00)
== END 2018-05-14 09:50 | disposition home or self-care (01) | DRG 773 ==
LOC: YASAS 15:32 → Y3N 18:24
PROVIDERS: ADMIT Surgery; ATTEND Surgery
PROC: HZ2ZZZZ Detoxification Services for Substance Abuse Treatment (ICD-10-PCS; principal; 2018-05-10)
DX: F11.23 Opioid dependence with withdrawal (principal); F17.210 Nicotine dependence, cigarettes, uncomplicated; F20.9 Schizophrenia, unspecified; J44.9 Chronic obstructive pulmonary disease, unspecified; R60.0 Localized edema; M12.9 Arthropathy, unspecified; Z98.890 Other specified postprocedural states
CPT/HCPCS: 36415; 80053; 81003; 85027; 86593; J2794